=== PATIENT | male | born 1965 | race Caucasian/White ===

== ENCOUNTER 2016-09-28 18:27 | Emergency (ER) | payer MEDICAID, OTHER, SELFPAY ==
[~2016-09-28] VITALS: Ht 188 cm; Wt 124.0 kg
[2016-09-28 18:40] VITALS: BP 152/92
[2016-09-28] MEDS ORDERED: KETOROLAC 30 MG/1 ML IM ONE (19:30)
[2016-09-28] MEDS ORDERED: HYDROcodone/APAP 5/325 TABLET PO ONE (19:30)
[2016-09-28] MEDS ORDERED: DIAZEPAM 5 MG TABLET PO ONE (19:30)
== END 2016-09-28 19:46 | disposition home or self-care (01) ==
LOC: ED 19:35
DX: S39.012A Strain of muscle, fascia and tendon of lower back, initial encounter (principal); I10 Essential (primary) hypertension; M54.30 Sciatica, unspecified side; X50.9XXA Other and unspecified overexertion or strenuous movements or postures, initial encounter; Y93.89 Activity, other specified; Y92.89 Other specified places as the place of occurrence of the external cause; Y99.2 Volunteer activity
CPT/HCPCS: 96372; 99283; J1885

== ENCOUNTER 2016-11-01 20:38 | Emergency (ER) | payer MEDICAID ==
[~2016-11-01] VITALS: Ht 180.3 cm; Wt 138.5 kg
[~2016-11-01 20:38] MED LIST: DILT60CA PO; ENAL1TAB4 PO
[2016-11-01 22:19] LABS: ASPARTATE AMINO TRANSFERASE 13 U/L (15-37); BLOOD UREA NITROGEN 51 mg/dL (7-18)
[2016-11-01] MEDS ORDERED: IBUP200T5 PO (22:28)
[2016-11-01] MEDS ORDERED: QUET25TA5 PO (22:28)
[2016-11-01] MEDS ORDERED: GABA300C10 PO (22:28)
[2016-11-01] MEDS ORDERED: CYCL5TAB PO (22:28)
[2016-11-01 23:00] VITALS: BP 123/84
== END 2016-11-02 00:03 | disposition home or self-care (01) ==
LOC: ED 23:54
DX: S39.012A Strain of muscle, fascia and tendon of lower back, initial encounter (principal); X50.9XXA Other and unspecified overexertion or strenuous movements or postures, initial encounter; I12.9 Hypertensive chronic kidney disease with stage 1 through stage 4 chronic kidney disease, or unspecified chronic kidney disease; N18.9 Chronic kidney disease, unspecified; M54.30 Sciatica, unspecified side; M54.5 Low back pain; R10.9 Unspecified abdominal pain; Y93.89 Activity, other specified; Y92.89 Other specified places as the place of occurrence of the external cause; Y99.8 Other external cause status
CPT/HCPCS: 36415; 76770; 80053; 80307; 81003; 83690; 85025

== ENCOUNTER 2018-01-29 03:47 | Emergency (ER) | payer MEDICAID ==
[~2018-01-29] VITALS: Ht 177.8 cm; Wt 90.9 kg
[~2018-01-29 03:47] MED LIST changes: +CYCL5TAB PO; +GABA300C10 PO; +IBUP-1484 PO; +QUET25TA5 PO
[2018-01-29] MEDS ORDERED: LIDOCAINE-MPF 2%, 2ML ONE (04:01)
[2018-01-29] MEDS ORDERED: DIPH,PERTUSS(ACELL),TET VAC/PF 0.5 ML IM-VACC ONE (04:03)
[2018-01-29] MEDS ORDERED: ALBUTEROL/IPRATROPIUM 2.5MG/0.5MG, 3 ML NPPB ONE (07:00)
[2018-01-29] MEDS ORDERED: ALBUTEROL/IPRATROPIUM 2.5MG/0.5MG, 3 ML ONE (07:15)
[2018-01-29 07:46] VITALS: BP 138/78
== END 2018-01-29 05:25 | disposition home or self-care (01) ==
LOC: ED 05:19
DX: S06.0X9A Concussion with loss of consciousness of unspecified duration, initial encounter (principal); S01.412A Laceration without foreign body of left cheek and temporomandibular area, initial encounter; S02.411A LeFort I fracture, initial encounter for closed fracture; I10 Essential (primary) hypertension; F10.120 Alcohol abuse with intoxication, uncomplicated; Y04.0XXA Assault by unarmed brawl or fight, initial encounter; Y93.89 Activity, other specified; Y99.8 Other external cause status; Y92.410 Unspecified street and highway as the place of occurrence of the external cause
CPT/HCPCS: 12052; 70450; 70486; 71045; 93005; 94640; 99284

== ENCOUNTER 2018-05-13 22:13 | Emergency (ER) | payer MEDICAID ==
[~2018-05-13] VITALS: Ht 177.8 cm; Wt 129.0 kg
[2018-05-13 23:08] LABS: BASOPHILS # (AUTO) 0.05 x10^3/uL (0-0.1); BASOPHILS % (AUTO) 1 % (0-1); EOSINOPHILS # (AUTO) 0.32 x10^3/uL (0-0.4); EOSINOPHILS % (AUTO) 5 % (1-7); LYMPHOCYTES # (AUTO) 1.18 x10^3/uL (1-3.4); LYMPHOCYTES % (AUTO) 17 % (22-44); MD NO; MEAN CORPUSCULAR HEMOGLOBIN 33.3 pg (27.5-34.5); MEAN CORPUSCULAR HGB CONC 34.2 g/dL (33.2-36.2); MEAN CORPUSCULAR VOLUME 97.2 fL (81-97); MEAN PLATELET VOLUME 8.6 fL (7.4-10.4); MONOCYTES # (AUTO) 0.72 x10^3/uL (0.2-0.8); MONOCYTES % (AUTO) 10 % (2-9); NEUTROPHILS # (AUTO) 4.63 x10^3/uL (1.8-6.8); NEUTROPHILS % (AUTO) 67 % (42-75); PLATELET COUNT 230 x10^3/uL (130-400); RED BLOOD COUNT 3.89 x10^6/uL (4.38-5.82); RED CELL DISTRIBUTION WIDTH 15.3 % (9.4-14.8)
[2018-05-13 23:23] LABS: ALBUMIN 3.5 g/dL (3.4-5.0); ANION GAP 11 mmol/L (5-15); CALCIUM 8.2 mg/dL (8.5-10.1); CHLORIDE 109 mmol/L (98-107); CREATININE 1.24 mg/dL (0.7-1.3)
[2018-05-13 23:27] LABS: TROPONIN I < 0.015 ng/mL (0.000-0.045)
[2018-05-13 23:56] VITALS: BP 136/71
== END 2018-05-14 00:11 | disposition home or self-care (01) ==
LOC: ED 05-14 00:06
DX: J18.1 Lobar pneumonia, unspecified organism (principal); I10 Essential (primary) hypertension; M54.30 Sciatica, unspecified side; R07.2 Precordial pain
CPT/HCPCS: 36415; 71045; 80048; 82040; 84484; 85025; 93005; 99285